=== PATIENT | female | born 1955 | race Caucasian/White ===

== ENCOUNTER 2019-11-22 13:37 | Outpatient (CLI) | payer MEDICARE, SELFPAY ==
--- NOTE | 2019-11-22 13:47 | MM_ITS ---
WS: [id number] BILATERAL DIGITAL SCREENING MAMMOGRAPHY WITH CAD CLINICAL INFORMATION: SCREENING HISTORY: Screening mammogram. No current complaints. COMPARISON: TECHNIQUE: Bilateral CC and MLO views. FINDINGS: Scattered fibroglandular densities bilaterally. No suspicious focal mass, asymmetry, calcifications, or architectural distortion. No evidence of malignancy. MM/[place] [id number] IMPRESSION: BI-RADS: 1-Negative FOLLOW UP: 1 Year Follow-up Recommend return to annual screening mammography.
--- NOTE | 2019-11-22 14:30 | XR_ITS ---
WS: [id number] Bone mineral density performed on a [employer], today Clinical data: OSTEOPOROSIS Comparison study: DEXA scan, 06/01/2014. Findings: The first 4 lumbar vertebral bodies demonstrated the bone mineral density of 1.177 g/cm2 for a young adult T score of 0.0. Measurement of the left hip reveals a bone mineral density of 0.897 g/cm2 with a young adult T score of -0.9. Measurement of the right hip reveals the bone mineral density of 0.953 g/cm2 for young adult T score of -0.4. XR/XR DEXA axial skeleton* [id number] Impression: 1. Normal bone mineral density of the lumbar spine with a slight decrease in th e bone mineral density compared to the prior scan. 2. Normal bone mineral density of the hips with a slight decrease in the bone m ineral density compared to the prior scan.
== END 2019-11-22 13:38 | disposition home or self-care (01) ==
LOC: RADSHAW 13:45
PROVIDERS: PCP Family Medicine; Visit Provider Family Medicine
DX: Z12.31 Encounter for screening mammogram for malignant neoplasm of breast (principal); M81.0 Age-related osteoporosis without current pathological fracture
CPT/HCPCS: 77067; 77080

== ENCOUNTER 2021-01-01 07:12 | Outpatient (CLI) | payer MEDICARE, SELFPAY ==
--- NOTE | 2021-01-01 07:18 | MM_ITS ---
WS: [id number] Exam: [id number] Date/Time of Exam: 01/01/2021 7:32 AM Reason For Exam: SCREENING VIEWS: MLO and CC views both breasts. Comparison made with prior exam of 08/09/2011, 05/30/2014 and 11/22/2019. Findings: There was no sign of mass, architectural distortion or suspicious calcification in either breast. Fa tty MM/[place] [id number] Impression: BI-RADS: 2-Benign FOLLOW-UP: 1 Year Follow-up This mammogram was also analyzed by the Computer Aided Detection System R2 [employer]ag [employer].
== END 2021-01-01 07:13 | disposition home or self-care (01) ==
LOC: RADSHAW 07:15
PROVIDERS: PCP Family Medicine; Visit Provider Nurse Practitioner
DX: Z12.31 Encounter for screening mammogram for malignant neoplasm of breast (principal)
CPT/HCPCS: 77067

== ENCOUNTER 2022-01-02 12:25 | Outpatient (CLI) | payer MEDICARE, SELFPAY ==
--- NOTE | 2022-01-02 12:44 | XR_ITS ---
WS: [id number] DEXA (DUAL ENERGY X-RAY ABSORPTIOMETRY) Bone mineral density was performed using a [employer] machine. HISTORY: POSTMENOPAUSAL COMPARISON: 11/22/2019 Lumbar spine BMD (L1-L4): 1.269 g/cm2 T score: 0.7 Z score: 1.5 Total hip BMD: Left: 0.910 g/cm2. T score: -0.8 Z score: 0.0 Right: 0.909 g/cm2. T score: -0.8 Z score: 0.0 10 year probability of a major osteoporotic fracture is 15.0%. Compared to the prior study from 11/22/2019. Lumbar spine bone mineral density has increased by 7.8%. Bilateral hips bone mineral density has decreased by 1.6%. XR/XR DEXA axial skeleton* [id number] IMPRESSION: Normal bone mineral density based upon the WHO classification for females. Significant increase in bone mineral density within the lumbar spine since the prior study.
--- NOTE | 2022-01-02 12:54 | MM_ITS ---
WS: [id number] BILATERAL 3D TOMOSYNTHESIS DIGITAL SCREENING MAMMOGRAPHY WITH CAD CLINICAL INFORMATION: SCREENING HISTORY: Screening mammogram. No current complaints. COMPARISON: January 01, 2021 TECHNIQUE: Bilateral CC and MLO views. FINDINGS: Scattered fibroglandular densities bilaterally. No suspicious focal mass, asymmetry, calcifications, or architectural distortion. No evidence of malignancy. Incidental punctate calcifications. MM/[place] [id number] IMPRESSION: BI-RADS: 2-Benign FOLLOW UP: 1 Year Follow-up Recommend return to annual screening mammography.
== END 2022-01-02 12:26 | disposition home or self-care (01) ==
LOC: RAD 12:26
PROVIDERS: PCP Family Medicine; Visit Provider Family Medicine
DX: Z78.0 Asymptomatic menopausal state (principal); Z12.31 Encounter for screening mammogram for malignant neoplasm of breast
CPT/HCPCS: 77063; 77067; 77080

== ENCOUNTER 2023-01-03 08:13 | Outpatient (CLI) | payer MEDICARE, SELFPAY ==
--- NOTE | 2023-01-03 08:23 | MM_ITS ---
WS: [id number] SCREENING DIGITAL TOMOSYNTHESIS MAMMOGRAM WITH CAD HISTORY: SCREEN COMPARISON: 01/02/2022 and 01/01/2021 Bilateral CC and MLO with tomosynthesis views submitted. Synthetic mammography reviewed. Computer aid ed detection analyzed. Breast composition: There are scattered areas of fibroglandular density. No suspicious masses, microc alcifications or architectural distortion. IMPRESSION: MM/[place] [id number] BI-RADS: 1-Negative FOLLOW UP: 1 Year Follow-up
== END 2023-01-03 08:14 | disposition home or self-care (01) ==
LOC: RAD 08:13
PROVIDERS: PCP Family Medicine; Visit Provider Family Medicine
DX: Z12.31 Encounter for screening mammogram for malignant neoplasm of breast (principal)
CPT/HCPCS: 77063; 77067

== ENCOUNTER 2024-01-19 14:00 | Outpatient (CLI) | payer MEDICARE, SELFPAY ==
--- NOTE | 2024-01-19 14:08 | XR_ITS ---
WS: [id number] SCREENING DEXA SCAN [employer] CLINICAL INFORMATION: POSTMENOPAUSAL COMPARISON: 2021 FINDINGS: The L1-L4 bone mineral density measures 1.198 g/cm2. This corresponds to a T score score of 0.2 and Z score of 0.7. Left femoral neck bone mineral density measures 0.871 g/cm2. This corresponds to a T score of -1.1 an d Z score of -0.4. Right femoral neck bone mineral density measures 0.888 g/cm2. This corresponds to a T score -0.9of an d Z score of -0.3. Mean femoral neck bone mineral density measures 0.880 g/cm2. This corresponds to a T score of -1.0 an d Z score of -0.4. XR/XR DEXA axial skeleton* [id number] IMPRESSION: Normal bone mineralization lumbar spine. Osteopenia femoral necks. Patient's FRAX calculated 10 year probability for major osteoporotic fracture i s 15.2% and osteoporotic hip fracture is 2.4%. Bone mineral density lumbar spine decreased -5.6% bone mineral density femoral necks decreased -3.3%
--- NOTE | 2024-01-19 14:08 | MM_ITS ---
WS: [email or web address] BILATERAL 3D TOMOSYNTHESIS DIGITAL SCREENING MAMMOGRAM WITH CAD CLINICAL INFORMATION: SCREENING HISTORY: Screening mammogram. No current complaints. COMPARISON: 2022 TECHNIQUE: Bilateral CC and MLO views. FINDINGS: Fatty-replaced breasts bilaterally. No suspicious focal mass, asymmetry, calcifications, or cloud architect ural distortion. No evidence of malignancy. MM/MM scr tomosynthesis [id number] IMPRESSION: DENSITY: The breasts are almost entirely fatty. BI-RADS: 1 - Negative. FOLLOW UP: 1 Year Follow-up Recommend return to annual screening mammography.
== END 2024-01-19 14:07 | disposition home or self-care (01) ==
PROVIDERS: PCP Family Medicine; Visit Provider Family Medicine
DX: Z12.31 Encounter for screening mammogram for malignant neoplasm of breast (principal); Z13.820 Encounter for screening for osteoporosis; R92.313 Mammographic fatty tissue density, bilateral breasts; Z78.0 Asymptomatic menopausal state; M85.80 Other specified disorders of bone density and structure, unspecified site
CPT/HCPCS: 77063; 77067; 77080